=== PATIENT | female | born 1940 | race Asian ===

== ENCOUNTER 2016-12-04 16:13 | Inpatient (IN) | payer MEDICARE, OTHER ==
[~2016-12-04] VITALS: Ht 149.9 cm; Wt 48.0 kg
[~2016-12-04 16:13] MED LIST: ADV100 IH; AMLO-511 PO; ASPI81TA2 PO; DOCU240C25 PO; FOLI1TAB85 PO; GABA-531 PO; HYDR25 PO; ISOR40SR PO; METO-325 PO; SEVEC800 PO; SIMV-260 PO; SITA100 PO; TRAV5DRO2 OU
[2016-12-04] MEDS ORDERED: PHOSLOC PO (16:22)
[2016-12-04] MEDS ORDERED: MONT10TA21 PO (16:24)
[2016-12-04 18:23] LABS: BASOPHILS % (AUTO) 0.1 % (0.0-2.0); EOSINOPHILS % (AUTO) 5.1 % (1.0-6.0); HEMATOCRIT 28.1 % (36-46); HEMOGLOBIN 9.2 g/dL (12.0-16.0); LYMPHOCYTES # (AUTO) 0.5 K/uL (1.0-4.8); LYMPHOCYTES % (AUTO) 4.2 % (22.0-44.0); MEAN CORPUSCULAR HEMOGLOBIN 31.2 pg (26.0-34.0); MEAN CORPUSCULAR HGB CONC 32.6 G/dL (31.0-37.0); MEAN CORPUSCULAR VOLUME 96 fL (80-100); MONOCYTES # (AUTO) 0.6 K/uL (0.1-1.0); MONOCYTES % (AUTO) 4.7 % (2.0-9.0); PLATELET COUNT (AUTO) 262 K/uL (150-450); RED BLOOD CELL COUNT(AUTO) 2.94 MIL/uL (4.00-5.20); RED CELL DISTRIBUTION WIDTH 17.7 % (11.5-14.5); WHITE BLOOD COUNT (AUTO) 12.8 K/uL (4.5-11.0)
[2016-12-04 18:33] LABS: NEUTROPHILS % (AUTO) 85.9 % (40.0-70.0)
[2016-12-04 18:43] LABS: PROTHROMBIN TIME 10.9 SEC (9.4-11.6)
[2016-12-04 18:49] LABS: ANION GAP 9 mmol/L (8-16); CALCIUM, TOTAL 9.2 mg/dL (8.8-10.5); CARBON DIOXIDE 27 mmol/L (22-29); CHLORIDE 95 mmol/L (98-107); CREATININE 4.12 mg/dL (0.60-1.30); GLOMERULAR FILTR. RATE CALC 10 mL/min (>60); POTASSIUM 4.9 mmol/L (3.5-5.1); SODIUM SERUM 131 mmol/L (136-145); UREA NITROGEN, BLOOD 34 mg/dL (7-18)
[2016-12-04 18:55] LABS: ALANINE AMINOTRANSFERASE 15 U/L (12-78); ALBUMIN 2.4 g/dL (3.4-5.0); ASPARTATE AMINOTRANSFERASE 25 U/L (15-37); BILIRUBIN,TOTAL 0.4 mg/dL (0.1-1.0); CREATINE KINASE, TOTAL 49 U/L (26-192); TOTAL PROTEIN, SERUM 8.5 g/dL (6.4-8.2)
[2016-12-04 19:07] LABS: B-TYPE NATRIURETIC PEPTIDE 2020 pg/mL (0-100)
[2016-12-04 19:10] LABS: RBC MORPHOLOGY COMMENT ABNORMAL RBC MORPH
[2016-12-04 19:57] LABS: APPEARANCE,URINE CLEAR (CLEAR); GLUCOSE, URINE (UA) 100 mg/dL (NEGATIVE); KETONES,URINE NEGATIVE (NEGATIVE); LEUKOCYTE ESTERASE ,URINE NEGATIVE (NEGATIVE); OCCULT BLOOD,URINE MODERATE (NEGATIVE); PROTEIN,URINE SEE CONFIRM (NEGATIVE)
[2016-12-04 20:04] LABS: ADD UA MICROSCOPIC YES
[2016-12-04 20:52] LABS: SULFOSALICYLIC ACID,URINE 2+ (Negative)
[2016-12-04] MEDS ORDERED: OXYGEN THERAPY IH SCH (21:15)
[2016-12-04] MEDS ORDERED: FUROSEMIDE 40 MG/4 ML VIAL IVP ONE (21:15)
[2016-12-04] MEDS ORDERED: IPRATROPIUM BROMIDE 0.5 MG/2.5 ML NEB SOLUTION NEB ONE (21:15)
[2016-12-04] MEDS ORDERED: ALBUTEROL SULFATE 5 MG/ML 20 ML NEB SOLN [BULK] NEB ONE (21:15)
[2016-12-04] MEDS ORDERED: CefTRIAXone 1 GM/DEXTROSE 50 ML IV ONE (21:15)
[2016-12-04] MEDS ORDERED: MethylPREDNISolone SOD SUCC 125 MG/2 ML VIAL IVP ONE (21:15)
[2016-12-04] MEDS ORDERED: ACETAMINOPHEN 325 MG TABLET PO PRN (21:45)
[2016-12-04] MEDS: OXYGEN THERAPY IH SCH (21:45)
[2016-12-04] MEDS ORDERED: 0.9% SODIUM CHLORIDE 10 ML SYRINGE IVP PRN (21:45)
[2016-12-04] MEDS ORDERED: ONDANSETRON HCL 4 MG/2 ML VIAL IVP PRN (21:45)
[2016-12-04] MEDS ORDERED: 0.9% SODIUM CHLORIDE 5 ML NEB SOLUTION NEB ONE (21:50)
[2016-12-04 22:29] LABS: INFLUENZA TYPE B NEGATIVE FOR TYPE B (NEGATIVE)
[2016-12-04] MEDS ORDERED: IPRATROPIUM BROMIDE 0.5 MG/2.5 ML NEB SOLUTION NEB SCH (23:00)
[2016-12-04] MEDS ORDERED: ALBUTEROL SULFATE 2.5 MG/0.5 ML NEB SOLUTION NEB SCH (23:00)
[2016-12-05] VITALS (9 sets, daily range): BP systolic 110–148; BP diastolic 46–80
[2016-12-05] MEDS ORDERED: *CLINICAL-LEVOFLOXACIN IVPB DOSING CLINICAL ONE ×2 (00:45)
[2016-12-05] MEDS ORDERED: ONDANSETRON HCL 4 MG/2 ML VIAL IVP PRN (01:00)
[2016-12-05] MEDS ORDERED: MAGNESIUM HYDROXIDE SUSPENSION 30 ML UDCUP PO PRN (01:00)
[2016-12-05] MEDS ORDERED: DEXTROSE 50%-WATER 25 GM/50 ML SYRINGE IVP PRN (01:00)
[2016-12-05] MEDS ORDERED: DOCUSATE SODIUM 100 MG CAPSULE PO SCH (01:00)
[2016-12-05] MEDS ORDERED: OxyCODONE HCL/ACETAMINOPHEN 5-325 MG TABLET PO PRN ×2 (01:00)
[2016-12-05] MEDS ORDERED: 0.9% SODIUM CHLORIDE 10 ML SYRINGE IVP PRN (01:00)
[2016-12-05] MEDS ORDERED: LEVOFLOXACIN 500 MG/D5% WATER 100 ML IV ONE (01:00)
[2016-12-05] MEDS ORDERED: ACETAMINOPHEN 325 MG TABLET PO PRN (01:00)
[2016-12-05] MEDS ORDERED: POTASSIUM CHLORIDE 20 MEQ ER TABLET PO ONE (01:00)
[2016-12-05] MEDS ORDERED: SODIUM CHLORIDE 0.9% 100 ML ONE (01:20)
[2016-12-05] MEDS: DOCUSATE CALCIUM 240 MG CAPSULE PO SCH ×3 (01:33→20:05)
[2016-12-05] MEDS: TRAVOPROST-Z 0.004% 2.5 ML OPHTHALMIC SOLUTION OU SCH ×2 (01:33→20:07)
[2016-12-05] MEDS: AmLODIPine BESYLATE 5 MG TABLET PO SCH ×3 (01:33→20:06)
[2016-12-05] MEDS: HydrALAZINE HCL 25 MG TABLET PO SCH ×3 (01:33→20:06)
[2016-12-05] MEDS: CALCIUM ACETATE 667 MG CAPSULE PO SCH ×3 (08:00→18:09)
[2016-12-05] MEDS: SEVELAMER CARBONATE 800 MG TABLET PO SCH ×2 (08:00→18:09)
[2016-12-05] MEDS: OXYGEN THERAPY IH SCH (08:03)
[2016-12-05] MEDS: PANTOPRAZOLE SODIUM 40 MG/VIAL IVP SCH (08:50)
[2016-12-05] MEDS: GABAPENTIN 300 MG CAPSULE PO SCH ×3 (08:51→20:06)
[2016-12-05] MEDS: ASPIRIN 81 MG CHEWABLE TABLET PO SCH (08:51)
[2016-12-05] MEDS: ISOSORBIDE MONONITRATE 60 MG ER TABLET PO SCH (08:51)
[2016-12-05] MEDS: MONTELUKAST SODIUM 10 MG TABLET PO SCH (08:51)
[2016-12-05] MEDS: INSULIN ASPART 100 UNITS/ML SQ PRN ×3 (12:18→22:04)
[2016-12-05] MEDS ORDERED: SODIUM CHLORIDE 0.9% 1,000 ML IV ONE ×2 (13:03→13:05)
[2016-12-05 19:40] LABS: GLUCOSE COMMENT 1 Received Meds; GLUCOSE,POINT OF CARE 222 MG/DL (70-110)
[2016-12-05 19:41] LABS: GLUCOSE COMMENT 1 Received Meds; GLUCOSE,POINT OF CARE 177 MG/DL (70-110)
[2016-12-05 19:41] LABS: GLUCOSE,POINT OF CARE 85 MG/DL (70-110)
[2016-12-05] MEDS: SIMVASTATIN 20 MG TABLET PO SCH (20:06)
[2016-12-05] MEDS: METOPROLOL SUCCINATE 50 MG ER TABLET PO SCH (20:07)
[2016-12-06 05:13] VITALS: BP 134/69
[2016-12-06 06:31] LABS: BASOPHILS % (AUTO) 0.2 % (0.0-2.0); EOSINOPHILS % (AUTO) 5.3 % (1.0-6.0); HEMATOCRIT 31.9 % (36-46); HEMOGLOBIN 10.2 g/dL (12.0-16.0); LYMPHOCYTES # (AUTO) 0.7 K/uL (1.0-4.8); LYMPHOCYTES % (AUTO) 6.4 % (22.0-44.0); MEAN CORPUSCULAR HEMOGLOBIN 31.4 pg (26.0-34.0); MEAN CORPUSCULAR HGB CONC 31.9 G/dL (31.0-37.0); MEAN CORPUSCULAR VOLUME 98 fL (80-100); MONOCYTES # (AUTO) 0.9 K/uL (0.1-1.0); MONOCYTES % (AUTO) 8.9 % (2.0-9.0); NEUTROPHILS # (AUTO) 8.2 K/uL (1.8-7.7); NEUTROPHILS % (AUTO) 79.2 % (40.0-70.0); PLATELET COUNT (AUTO) 282 K/uL (150-450); RED BLOOD CELL COUNT(AUTO) 3.24 MIL/uL (4.00-5.20); RED CELL DISTRIBUTION WIDTH 18.4 % (11.5-14.5); WHITE BLOOD COUNT (AUTO) 10.3 K/uL (4.5-11.0)
[2016-12-06 06:49] LABS: CALCIUM, TOTAL 9.6 mg/dL (8.8-10.5); CREATININE 3.42 mg/dL (0.60-1.30)
[2016-12-06 07:57] VITALS: BP 108/58
[2016-12-06] MEDS: AmLODIPine BESYLATE 5 MG TABLET PO SCH ×2 (09:00→21:03)
[2016-12-06] MEDS: HydrALAZINE HCL 25 MG TABLET PO SCH ×2 (09:00→21:00)
[2016-12-06] MEDS: ISOSORBIDE MONONITRATE 60 MG ER TABLET PO SCH (09:00)
[2016-12-06] MEDS: TRAVOPROST-Z 0.004% 2.5 ML OPHTHALMIC SOLUTION OU SCH (09:03)
[2016-12-06] MEDS: MONTELUKAST SODIUM 10 MG TABLET PO SCH (09:06)
[2016-12-06] MEDS: ASPIRIN 81 MG CHEWABLE TABLET PO SCH (09:06)
[2016-12-06] MEDS: DOCUSATE CALCIUM 240 MG CAPSULE PO SCH ×4 (09:06→21:28)
[2016-12-06] MEDS: SEVELAMER CARBONATE 800 MG TABLET PO SCH ×2 (09:06→18:15)
[2016-12-06] MEDS: CALCIUM ACETATE 667 MG CAPSULE PO SCH ×3 (09:06→18:14)
[2016-12-06] MEDS: PANTOPRAZOLE SODIUM 40 MG/VIAL IVP SCH (09:07)
[2016-12-06] MEDS: GABAPENTIN 300 MG CAPSULE PO SCH ×3 (09:58→21:02)
[2016-12-06 11:29] VITALS: BP 101/47
[2016-12-06] MEDS: INSULIN ASPART 100 UNITS/ML SQ PRN ×3 (12:24→21:03)
[2016-12-06 15:53] VITALS: BP 123/54
[2016-12-06 19:33] VITALS: BP 117/50
[2016-12-06 20:42] LABS: GLUCOSE COMMENT 1 Received Meds; GLUCOSE,POINT OF CARE 150 MG/DL (70-110)
[2016-12-06 20:42] LABS: GLUCOSE COMMENT 1 Received Meds; GLUCOSE,POINT OF CARE 188 MG/DL (70-110)
[2016-12-06] MEDS: METOPROLOL SUCCINATE 50 MG ER TABLET PO SCH (21:02)
[2016-12-06] MEDS: SIMVASTATIN 20 MG TABLET PO SCH (21:03)
[2016-12-07] MEDS ORDERED: SODIUM CHLORIDE 0.9% 250 ML IV ONE (00:45)
[2016-12-07] MEDS ORDERED: LEVOFLOXACIN 500 MG/D5% WATER 100 ML IV SCH (01:00)
[2016-12-07] MEDS ORDERED: LEVOFLOXACIN 250 MG/D5% WATER 50 ML IV SCH (01:00)
[2016-12-07 05:19] VITALS: BP 128/55
[2016-12-07 06:21] LABS: GLUCOSE,POINT OF CARE 103 MG/DL (70-110)
[2016-12-07 07:17] VITALS: BP 126/45
[2016-12-07] MEDS: PANTOPRAZOLE SODIUM 40 MG/VIAL IVP SCH (08:13)
[2016-12-07] MEDS ORDERED: VITAMIN B COMP/VIT C/FOLIC ACID CAPSULE PO SCH (09:30)
[2016-12-07 10:17] LABS: CREATININE 5.49 mg/dL (0.60-1.30); PHOSPHORUS 4.9 mg/dL (2.5-4.9)
[2016-12-07 11:22] VITALS: BP 107/49
[2016-12-07] MEDS: CALCIUM ACETATE 667 MG CAPSULE PO SCH ×3 (11:30→18:38)
[2016-12-07] MEDS: SEVELAMER CARBONATE 800 MG TABLET PO SCH ×2 (11:30→18:38)
[2016-12-07] MEDS: ASPIRIN 81 MG CHEWABLE TABLET PO SCH (11:31)
[2016-12-07] MEDS: ISOSORBIDE MONONITRATE 60 MG ER TABLET PO SCH (11:31)
[2016-12-07] MEDS: HydrALAZINE HCL 25 MG TABLET PO SCH ×2 (11:31→20:18)
[2016-12-07] MEDS: AmLODIPine BESYLATE 5 MG TABLET PO SCH ×2 (11:32→20:18)
[2016-12-07] MEDS: MONTELUKAST SODIUM 10 MG TABLET PO SCH (11:32)
[2016-12-07] MEDS: GABAPENTIN 300 MG CAPSULE PO SCH ×3 (11:32→20:17)
[2016-12-07] MEDS: DOCUSATE CALCIUM 240 MG CAPSULE PO SCH ×2 (11:33→20:17)
[2016-12-07] MEDS: INSULIN ASPART 100 UNITS/ML SQ PRN ×2 (12:08→18:38)
[2016-12-07] MEDS ORDERED: MANNITOL 25%-12.5 GM/50 ML VIAL IVP PRN (15:15)
[2016-12-07] MEDS ORDERED: ALBUMIN HUMAN 25%-12.5GM/50ML IV BOTTLE IV PRN (15:15)
[2016-12-07 19:49] VITALS: BP 107/40
[2016-12-07] MEDS: SIMVASTATIN 20 MG TABLET PO SCH (20:17)
[2016-12-07] MEDS: TRAVOPROST-Z 0.004% 2.5 ML OPHTHALMIC SOLUTION OU SCH (20:17)
[2016-12-07] MEDS: METOPROLOL SUCCINATE 50 MG ER TABLET PO SCH (20:18)
[2016-12-08 00:07] LABS: GLUCOSE COMMENT 1 Received Meds; GLUCOSE,POINT OF CARE 289 MG/DL (70-110)
[2016-12-08 00:07] LABS: GLUCOSE COMMENT 1 Received Meds; GLUCOSE,POINT OF CARE 170 MG/DL (70-110)
[2016-12-08 14:46] LABS: GLUCOSE COMMENT 1 Received Meds; GLUCOSE,POINT OF CARE 192 MG/DL (70-110)
[2016-12-08 14:46] LABS: GLUCOSE COMMENT 1 Received Meds; GLUCOSE,POINT OF CARE 179 MG/DL (70-110)
[2016-12-08 14:46] LABS: GLUCOSE,POINT OF CARE 113 MG/DL (70-110)
[2016-12-08 14:46] LABS: GLUCOSE,POINT OF CARE 196 MG/DL (70-110)
== END 2016-12-07 20:50 | DRG 291 ==
LOC: EMS 16:18 → 5S 22:00
PROVIDERS: ADMIT Internal Medicine; ATTEND Internal Medicine
PROC: 5A09357 Assistance with Respiratory Ventilation, Less than 24 Consecutive Hours, Continuous Positive Airway Pressure (ICD-10-PCS; 2016-12-04)
PROC: 5A1D00Z (ICD-10-PCS; principal; 2016-12-07)
DX: I13.2 Hypertensive heart and chronic kidney disease with heart failure and with stage 5 chronic kidney disease, or end stage renal disease (principal); G93.41 Metabolic encephalopathy; E43 Unspecified severe protein-calorie malnutrition; N18.6 End stage renal disease; J96.01 Acute respiratory failure with hypoxia; I50.43 Acute on chronic combined systolic (congestive) and diastolic (congestive) heart failure; N39.0 Urinary tract infection, site not specified; M19.90 Unspecified osteoarthritis, unspecified site; E78.00 Pure hypercholesterolemia, unspecified; E11.22 Type 2 diabetes mellitus with diabetic chronic kidney disease; E11.21 Type 2 diabetes mellitus with diabetic nephropathy; D63.1 Anemia in chronic kidney disease; J44.9 Chronic obstructive pulmonary disease, unspecified; I25.10 Atherosclerotic heart disease of native coronary artery without angina pectoris; H40.9 Unspecified glaucoma; M10.9 Gout, unspecified; Z99.2 Dependence on renal dialysis; Z88.1 Allergy status to other antibiotic agents; Z88.8 Allergy status to other drugs, medicaments and biological substances; Z79.899 Other long term (current) drug therapy; Z79.82 Long term (current) use of aspirin; Z79.4 Long term (current) use of insulin; Z68.21 Body mass index [BMI] 21.0-21.9, adult; Z90.49 Acquired absence of other specified parts of digestive tract; Z95.1 Presence of aortocoronary bypass graft; Z95.0 Presence of cardiac pacemaker; Z87.440 Personal history of urinary (tract) infections
CPT/HCPCS: 70450; 74176; 82962; 83735; 84100; 87040; 87081; 87086; 87340; 87804; 90935; 93005; 94640; 96365; 96375; 99285; C9113; J0696; J1940; J1956; J2930; J7030; J7050

== ENCOUNTER 2017-01-20 09:28 | Inpatient (IN) | payer MEDICARE, OTHER ==
[~2017-01-20] VITALS: Ht 144.8 cm; Wt 67.5 kg
[~2017-01-20 09:28] MED LIST changes: +MONT10TA21 PO; +PHOSLOC PO
[2017-01-20] MEDS ORDERED: ALBUTEROL SULFATE 5 MG/ML 20 ML NEB SOLN [BULK] NEB ONE (10:30)
[2017-01-20] MEDS ORDERED: IPRATROPIUM BROMIDE 0.5 MG/2.5 ML NEB SOLUTION NEB ONE (10:30)
[2017-01-20 10:31] LABS: GLUCOSE,POINT OF CARE 132 MG/DL (70-110)
[2017-01-20] MEDS ORDERED: 0.9% SODIUM CHLORIDE 5 ML NEB SOLUTION NEB ONE (10:41)
[2017-01-20] MEDS ORDERED: MethylPREDNISolone SOD SUCC 125 MG/2 ML VIAL IVP ONE (10:45)
[2017-01-20 11:47] LABS: BASOPHILS % (AUTO) 0.1 % (0.0-2.0); EOSINOPHILS % (AUTO) 0.2 % (1.0-6.0); HEMATOCRIT 36.1 % (36-46); HEMOGLOBIN 11.3 g/dL (12.0-16.0); LYMPHOCYTES # (AUTO) 1.4 K/uL (1.0-4.8); LYMPHOCYTES % (AUTO) 11.8 % (22.0-44.0); MEAN CORPUSCULAR HEMOGLOBIN 31.1 pg (26.0-34.0); MEAN CORPUSCULAR HGB CONC 31.3 G/dL (31.0-37.0); MEAN CORPUSCULAR VOLUME 99 fL (80-100); MONOCYTES # (AUTO) 0.6 K/uL (0.1-1.0); MONOCYTES % (AUTO) 4.9 % (2.0-9.0); NEUTROPHILS # (AUTO) 9.9 K/uL (1.8-7.7); PLATELET COUNT (AUTO) 200 K/uL (150-450); RED BLOOD CELL COUNT(AUTO) 3.63 MIL/uL (4.00-5.20); RED CELL DISTRIBUTION WIDTH 19.7 % (11.5-14.5)
[2017-01-20 11:58] LABS: RBC MORPHOLOGY COMMENT ABNORMAL RBC MORPH
[2017-01-20] MEDS ORDERED: DEXTROSE 50%-WATER 25 GM/50 ML SYRINGE IVP ONE (12:15)
[2017-01-20] MEDS ORDERED: INSULIN REGULAR, HUMAN 100 UNITS/ML IVP ONE (12:15)
[2017-01-20] MEDS ORDERED: SODIUM BICARBONATE [ADULT] 8.4% 50 MEQ/50 ML SYRINGE IVP ONE (12:15)
[2017-01-20] MEDS ORDERED: SODIUM POLYSTYRENE SULFONATE 15 GM/60 ML SUSPENSION BOTTLE PO ONE (12:15)
[2017-01-20 13:07] LABS: GLUCOSE,POINT OF CARE 172 MG/DL (70-110)
[2017-01-20 13:51] LABS: ANION GAP 19 mmol/L (8-16); CALCIUM, TOTAL 8.9 mg/dL (8.8-10.5); CARBON DIOXIDE 20 mmol/L (22-29); CHLORIDE 103 mmol/L (98-107); CREATININE 7.51 mg/dL (0.60-1.30); GLOMERULAR FILTR. RATE CALC 5 mL/min (>60); INR 1.1 (0.9-1.1); PROTHROMBIN TIME 11.7 SEC (9.4-11.6); SODIUM SERUM 142 mmol/L (136-145); UREA NITROGEN, BLOOD 91 mg/dL (7-18)
[2017-01-20 14:29] LABS: ALANINE AMINOTRANSFERASE 10 U/L (12-78); ALBUMIN 2.7 g/dL (3.4-5.0); ASPARTATE AMINOTRANSFERASE 26 U/L (15-37); BILIRUBIN,TOTAL 0.8 mg/dL (0.1-1.0); CREATINE KINASE, TOTAL 23 U/L (26-192); TOTAL PROTEIN, SERUM 6.8 g/dL (6.4-8.2)
[2017-01-20 14:46] LABS: ORIG DRAW (USER) PTCARESTAF
[2017-01-20] MEDS ORDERED: CefTRIAXone 1 GM/DEXTROSE 50 ML IV ONE (15:07)
[2017-01-20 15:36] LABS: REFLEX LACTIC ACID? YES YES
[2017-01-20] MEDS ORDERED: 0.9% SODIUM CHLORIDE 10 ML SYRINGE IVP PRN (18:00)
[2017-01-20] MEDS ORDERED: DEXTROSE 50%-WATER 25 GM/50 ML SYG IVP PRN (18:00)
[2017-01-20] MEDS ORDERED: ACETAMINOPHEN 325 MG TABLET PO PRN ×2 (18:00)
[2017-01-20 18:18] LABS: APPEARANCE,URINE TURBID (CLEAR); GLUCOSE, URINE (UA) 100 mg/dL (NEGATIVE); KETONES,URINE NEGATIVE (NEGATIVE); LEUKOCYTE ESTERASE ,URINE SMALL (NEGATIVE); OCCULT BLOOD,URINE LARGE (NEGATIVE); PROTEIN,URINE SEE CONFIRM (NEGATIVE)
[2017-01-20 18:19] LABS: ADD UA MICROSCOPIC YES
[2017-01-20 18:22] LABS: SULFOSALICYLIC ACID,URINE 3+ (Negative)
[2017-01-20 19:22] VITALS: BP 141/60
[2017-01-20] MEDS: PANTOPRAZOLE SODIUM 40 MG DR TABLET PO SCH (20:38)
[2017-01-20] MEDS: DOCUSATE SODIUM 100 MG CAPSULE PO SCH (20:39)
[2017-01-20] MEDS: ASPIRIN 81 MG CHEWABLE TABLET PO SCH (20:39)
[2017-01-20] MEDS: INSULIN ASPART 100 UNITS/ML SQ PRN (21:06)
[2017-01-21] VITALS (7 sets, daily range): BP systolic 114–140; BP diastolic 54–75
[2017-01-21 05:43] LABS: GLUCOSE COMMENT 1 Received Meds; GLUCOSE,POINT OF CARE 308 MG/DL (70-110)
[2017-01-21] MEDS: INSULIN ASPART 100 UNITS/ML SQ PRN ×2 (06:19→18:16)
[2017-01-21] MEDS: DOCUSATE SODIUM 100 MG CAPSULE PO SCH ×2 (08:50→20:30)
[2017-01-21] MEDS: PANTOPRAZOLE SODIUM 40 MG DR TABLET PO SCH (08:50)
[2017-01-21] MEDS: ASPIRIN 81 MG CHEWABLE TABLET PO SCH (08:50)
[2017-01-21] MEDS ORDERED: INSULIN ASPART 100 UNITS/ML SQ PRN (09:15)
[2017-01-21] MEDS ORDERED: ACETAMINOPHEN 325 MG TABLET PO PRN (09:15)
[2017-01-21] MEDS ORDERED: BISACODYL 10 MG RECTAL RECTAL SUPPOSITORY PR PRN (09:15)
[2017-01-21] MEDS ORDERED: ALBUTEROL SULFATE 2.5 MG/0.5 ML NEB SOLUTION NEB PRN (09:15)
[2017-01-21] MEDS ORDERED: DEXTROSE 50%-WATER 25 GM/50 ML SYRINGE IVP PRN (09:15)
[2017-01-21 09:23] LABS: HEMATOCRIT 31.5 % (36-46); HEMOGLOBIN 10.1 g/dL (12.0-16.0); MEAN CORPUSCULAR HEMOGLOBIN 31.9 pg (26.0-34.0); MEAN CORPUSCULAR HGB CONC 32.3 G/dL (31.0-37.0); MEAN CORPUSCULAR VOLUME 99 fL (80-100); PLATELET COUNT (AUTO) 184 K/uL (150-450); RED BLOOD CELL COUNT(AUTO) 3.18 MIL/uL (4.00-5.20); RED CELL DISTRIBUTION WIDTH 19.1 % (11.5-14.5)
[2017-01-21 09:34] LABS: CALCIUM, TOTAL 9.4 mg/dL (8.8-10.5); CREATININE 5.75 mg/dL (0.60-1.30); POTASSIUM 3.8 mmol/L (3.5-5.1)
[2017-01-21 09:40] LABS: ALBUMIN 2.6 g/dL (3.4-5.0); BILIRUBIN,TOTAL 0.5 mg/dL (0.1-1.0); MAGNESIUM 2.1 mg/dL (1.80-2.40); PHOSPHORUS 7.1 mg/dL (2.5-4.9); TOTAL PROTEIN, SERUM 8.1 g/dL (6.4-8.2)
[2017-01-21 09:53] LABS: BAND NEUTROPHILS % (MANUAL) 39 % (1-5); LYMPHOCYTES % (MANUAL) 1 % (22-44); TOTAL CELLS COUNTED 100
[2017-01-21 09:54] LABS: WBC MORPHOLOGY TOXIC GRANULATION
[2017-01-21] MEDS: VITAMIN B COMP/VIT C/FOLIC ACID CAPSULE PO SCH (10:36)
[2017-01-21] MEDS: HEPARIN SODIUM,PORCINE 5,000 UNITS/ML VIAL SQ SCH ×2 (10:36→20:31)
[2017-01-21] MEDS ORDERED: DOCUSATE SODIUM 100 MG CAPSULE PO SCH (21:00)
[2017-01-22 04:04] VITALS: BP 156/69
[2017-01-22 06:31] LABS: EOSINOPHILS % (AUTO) 0 % (1.0-6.0); HEMATOCRIT 32.4 % (36-46); HEMOGLOBIN 10.1 g/dL (12.0-16.0); LYMPHOCYTES # (AUTO) 0.3 K/uL (1.0-4.8); LYMPHOCYTES % (AUTO) 2.2 % (22.0-44.0); MEAN CORPUSCULAR HGB CONC 31.2 G/dL (31.0-37.0); MEAN CORPUSCULAR VOLUME 99 fL (80-100); MONOCYTES # (AUTO) 0.6 K/uL (0.1-1.0); MONOCYTES % (AUTO) 5.5 % (2.0-9.0); NEUTROPHILS # (AUTO) 10.4 K/uL (1.8-7.7); PLATELET COUNT (AUTO) 218 K/uL (150-450); RED BLOOD CELL COUNT(AUTO) 3.27 MIL/uL (4.00-5.20); RED CELL DISTRIBUTION WIDTH 19.5 % (11.5-14.5); WHITE BLOOD COUNT (AUTO) 11.3 K/uL (4.5-11.0)
[2017-01-22 06:43] LABS: NEUTROPHILS % (AUTO) 92.3 % (40.0-70.0)
[2017-01-22 06:48] LABS: CALCIUM, TOTAL 8.4 mg/dL (8.8-10.5); CREATININE 7.14 mg/dL (0.60-1.30); MAGNESIUM 2.4 mg/dL (1.80-2.40); PHOSPHORUS 7.2 mg/dL (2.5-4.9); POTASSIUM 4.3 mmol/L (3.5-5.1)
[2017-01-22 07:39] VITALS: BP 150/65
[2017-01-22] MEDS ORDERED: SODIUM CHLORIDE 0.9% 2,000 ML IV ONE (08:29)
[2017-01-22] MEDS: PANTOPRAZOLE SODIUM 40 MG DR TABLET PO SCH (09:00)
[2017-01-22] MEDS: ASPIRIN 81 MG CHEWABLE TABLET PO SCH (09:00)
[2017-01-22] MEDS: VITAMIN B COMP/VIT C/FOLIC ACID CAPSULE PO SCH (09:00)
[2017-01-22] MEDS: HEPARIN SODIUM,PORCINE 5,000 UNITS/ML VIAL SQ SCH ×2 (09:00→21:00)
[2017-01-22] MEDS: DOCUSATE SODIUM 100 MG CAPSULE PO SCH ×2 (09:00→21:00)
[2017-01-22] MEDS ORDERED: MANNITOL 25%-12.5 GM/50 ML VIAL IVP PRN (10:30)
[2017-01-22 10:38] LABS: RBC MORPHOLOGY COMMENT ABNORMAL RBC MORPH
[2017-01-22 11:50] VITALS: BP 111/54
[2017-01-22 11:57] LABS: GLUCOSE COMMENT 1 Received Meds; GLUCOSE,POINT OF CARE 282 MG/DL (70-110)
[2017-01-22 15:00] VITALS: BP 134/62
[2017-01-22] MEDS ORDERED: 0.9% SODIUM CHLORIDE 5 ML NEB SOLUTION NEB ONE (16:17)
[2017-01-22 19:38] VITALS: BP 139/68
[2017-01-22] MEDS: INSULIN ASPART 100 UNITS/ML SQ PRN (21:31)
[2017-01-23 00:22] VITALS: BP 139/67
[2017-01-23 05:11] VITALS: BP 127/73
[2017-01-23 06:56] LABS: GLUCOSE,POINT OF CARE 114 MG/DL (70-110)
[2017-01-23 07:24] VITALS: BP 141/62
[2017-01-23 07:30] LABS: CALCIUM, TOTAL 9.2 mg/dL (8.8-10.5); CREATININE 5.49 mg/dL (0.60-1.30); MAGNESIUM 2.2 mg/dL (1.80-2.40); PHOSPHORUS 5.5 mg/dL (2.5-4.9)
[2017-01-23 07:46] LABS: POTASSIUM 6.1 mmol/L (3.5-5.1)
[2017-01-23] MEDS: VITAMIN B COMP/VIT C/FOLIC ACID CAPSULE PO SCH (09:25)
[2017-01-23] MEDS: PANTOPRAZOLE SODIUM 40 MG DR TABLET PO SCH (09:25)
[2017-01-23] MEDS: ASPIRIN 81 MG CHEWABLE TABLET PO SCH (09:26)
[2017-01-23] MEDS: HEPARIN SODIUM,PORCINE 5,000 UNITS/ML VIAL SQ SCH (09:27)
[2017-01-23] MEDS: DOCUSATE SODIUM 100 MG CAPSULE PO SCH (09:27)
[2017-01-23 11:25] VITALS: BP 137/63
[2017-01-23 12:07] LABS: GLUCOSE COMMENT 1 Received Meds; GLUCOSE,POINT OF CARE 257 MG/DL (70-110)
[2017-01-23] MEDS: INSULIN ASPART 100 UNITS/ML SQ PRN (12:11)
[2017-02-01 06:54] LABS: GLUCOSE COMMENT 1 Received Meds; GLUCOSE,POINT OF CARE 324 MG/DL (70-110)
[2017-02-01 06:54] LABS: GLUCOSE COMMENT 1 Received Meds; GLUCOSE,POINT OF CARE 300 MG/DL (70-110)
[2017-02-01 06:54] LABS: GLUCOSE COMMENT 1 Received Meds; GLUCOSE,POINT OF CARE 272 MG/DL (70-110)
[2017-02-01 06:54] LABS: GLUCOSE COMMENT 1 Received Meds; GLUCOSE,POINT OF CARE 166 MG/DL (70-110)
== END 2017-01-23 15:00 | disposition home or self-care (01) | DRG 640 ==
LOC: EMS 09:31 → 5S 17:30
PROVIDERS: ADMIT Internal Medicine; ATTEND Internal Medicine
PROC: 5A1D60Z (ICD-10-PCS; principal; 2017-01-20)
DX: E87.5 Hyperkalemia (principal); N18.6 End stage renal disease; E43 Unspecified severe protein-calorie malnutrition; I50.32 Chronic diastolic (congestive) heart failure; I13.2 Hypertensive heart and chronic kidney disease with heart failure and with stage 5 chronic kidney disease, or end stage renal disease; E87.79 Other fluid overload; E11.22 Type 2 diabetes mellitus with diabetic chronic kidney disease; E11.65 Type 2 diabetes mellitus with hyperglycemia; R82.71 Bacteriuria; M19.90 Unspecified osteoarthritis, unspecified site; E78.00 Pure hypercholesterolemia, unspecified; I45.10 Unspecified right bundle-branch block; E87.2 Acidosis; I25.10 Atherosclerotic heart disease of native coronary artery without angina pectoris; J84.10 Pulmonary fibrosis, unspecified; I49.5 Sick sinus syndrome; I07.1 Rheumatic tricuspid insufficiency; R53.81 Other malaise; I70.0 Atherosclerosis of aorta; E78.5 Hyperlipidemia, unspecified; D64.9 Anemia, unspecified; Z99.2 Dependence on renal dialysis; Z88.5 Allergy status to narcotic agent; Z88.8 Allergy status to other drugs, medicaments and biological substances; Z88.0 Allergy status to penicillin; Z79.899 Other long term (current) drug therapy; Z79.51 Long term (current) use of inhaled steroids; Z79.4 Long term (current) use of insulin; Z79.82 Long term (current) use of aspirin; Z90.49 Acquired absence of other specified parts of digestive tract; Z95.1 Presence of aortocoronary bypass graft; Z68.32 Body mass index [BMI] 32.0-32.9, adult; Z95.810 Presence of automatic (implantable) cardiac defibrillator; Z82.49 Family history of ischemic heart disease and other diseases of the circulatory system
CPT/HCPCS: 70450; 82962; 83605; 83735; 84100; 84132; 84520; 87040; 87081; 87086; 87340; 90935; 93005; 93306; 96374; 96375; 97162; 99291; J0696; J1644; J1815; J2930; J3490; J7030

== ENCOUNTER 2017-01-25 17:20 | Inpatient (IN) | payer MEDICARE, OTHER ==
[~2017-01-25] VITALS: Ht 139.7 cm; Wt 45.9 kg
[~2017-01-25 17:20] MED LIST changes: -AMLO-511 PO; -GABA-531 PO; -ISOR40SR PO; -MONT10TA21 PO; -SIMV-260 PO; +SIMV20 PO
[2017-01-25] MEDS ORDERED: DOCU250C91 PO (17:44)
[2017-01-25] MEDS ORDERED: FAMO20 PO (17:44)
[2017-01-25] MEDS ORDERED: ISOS60TA4 PO (17:44)
[2017-01-25] MEDS ORDERED: TRAM50TA4 PO (17:44)
[2017-01-25] MEDS ORDERED: PHOSLOC PO (17:44)
[2017-01-25] MEDS ORDERED: DIPH25 PO (17:44)
[2017-01-25] MEDS ORDERED: VITAD1000 PO (17:44)
[2017-01-25] MEDS ORDERED: MONT10TA21 PO (17:44)
[2017-01-25] MEDS ORDERED: FURO80 PO (17:44)
[2017-01-25] MEDS ORDERED: AMLO-511 PO (17:44)
[2017-01-25] MEDS ORDERED: NITR.4 SL (17:44)
[2017-01-25] MEDS ORDERED: SODIUM CHLORIDE 0.9% 500 ML IV ONE (18:15)
[2017-01-25 19:36] LABS: TROPONIN I 0.05 ng/mL (0.00-0.05)
[2017-01-25 19:43] LABS: ANION GAP 13 mmol/L (8-16); CALCIUM, TOTAL 7.5 mg/dL (8.8-10.5); CARBON DIOXIDE 23 mmol/L (22-29); CHLORIDE 103 mmol/L (98-107); CREATININE 5.63 mg/dL (0.60-1.30); GLOMERULAR FILTR. RATE CALC 7 mL/min (>60); POTASSIUM 4.6 mmol/L (3.5-5.1); SODIUM SERUM 139 mmol/L (136-145); UREA NITROGEN, BLOOD 83 mg/dL (7-18)
[2017-01-25 19:45] LABS: BASOPHILS % (AUTO) 0.2 % (0.0-2.0); EOSINOPHILS % (AUTO) 0.5 % (1.0-6.0); HEMATOCRIT 28.2 % (36-46); LYMPHOCYTES # (AUTO) 0.4 K/uL (1.0-4.8); LYMPHOCYTES % (AUTO) 3.1 % (22.0-44.0); MEAN CORPUSCULAR HEMOGLOBIN 30.6 pg (26.0-34.0); MEAN CORPUSCULAR HGB CONC 31.9 G/dL (31.0-37.0); MEAN CORPUSCULAR VOLUME 96 fL (80-100); MONOCYTES # (AUTO) 0.6 K/uL (0.1-1.0); MONOCYTES % (AUTO) 3.9 % (2.0-9.0); NEUTROPHILS # (AUTO) 13.2 K/uL (1.8-7.7); PLATELET COUNT (AUTO) 171 K/uL (150-450); RED BLOOD CELL COUNT(AUTO) 2.94 MIL/uL (4.00-5.20); RED CELL DISTRIBUTION WIDTH 19.3 % (11.5-14.5); WHITE BLOOD COUNT (AUTO) 14.3 K/uL (4.5-11.0)
[2017-01-25 19:46] LABS: NEUTROPHILS % (AUTO) 92.3 % (40.0-70.0)
[2017-01-25 19:49] LABS: ALANINE AMINOTRANSFERASE 13 U/L (12-78); ALBUMIN 2.1 g/dL (3.4-5.0); ASPARTATE AMINOTRANSFERASE 18 U/L (15-37); BILIRUBIN,TOTAL 0.4 mg/dL (0.1-1.0); CREATINE KINASE, TOTAL 21 U/L (26-192); TOTAL PROTEIN, SERUM 6.9 g/dL (6.4-8.2)
[2017-01-25 19:52] LABS: LACTIC ACID 0.7 mmol/L (0.4-2.0)
[2017-01-25] MEDS ORDERED: OXYGEN THERAPY IH SCH (20:00)
[2017-01-25 20:03] LABS: RBC MORPHOLOGY COMMENT ABNORMAL RBC MORPH
[2017-01-25 20:08] LABS: B-TYPE NATRIURETIC PEPTIDE 443 pg/mL (0-100)
[2017-01-25 20:47] LABS: APPEARANCE,URINE CLOUDY (CLEAR); GLUCOSE, URINE (UA) 250 mg/dL (NEGATIVE); KETONES,URINE NEGATIVE (NEGATIVE); LEUKOCYTE ESTERASE ,URINE SMALL (NEGATIVE); OCCULT BLOOD,URINE TRACE (NEGATIVE); PH,URINE 5.5 (5.0-8.0); PROTEIN,URINE SEE CONFIRM (NEGATIVE)
[2017-01-25 21:18] LABS: SULFOSALICYLIC ACID,URINE 3+ (Negative)
[2017-01-25 21:22] LABS: WBC,URINE 51-100 /HPF (0-5)
[2017-01-25] MEDS ORDERED: ACETAMINOPHEN 325 MG TABLET PO PRN ×2 (21:30→22:00)
[2017-01-25] MEDS ORDERED: 0.9% SODIUM CHLORIDE 10 ML SYRINGE IVP PRN (21:30)
[2017-01-25] MEDS ORDERED: ONDANSETRON HCL 4 MG/2 ML VIAL IVP PRN ×2 (21:30→22:00)
[2017-01-25] MEDS ORDERED: CefTRIAXone 1 GM/DEXTROSE 50 ML IV ONE (21:45)
[2017-01-25] MEDS ORDERED: MAGNESIUM HYDROXIDE SUSPENSION 30 ML UDCUP PO PRN (22:00)
[2017-01-25] MEDS ORDERED: ALBUTEROL SULFATE 2.5 MG/0.5 ML NEB SOLUTION NEB PRN (22:00)
[2017-01-25] MEDS ORDERED: OxyCODONE HCL/ACETAMINOPHEN 5-325 MG TABLET PO PRN (22:00)
[2017-01-25] MEDS ORDERED: ZOLPIDEM TARTRATE 5 MG TABLET PO PRN (22:00)
[2017-01-25] MEDS ORDERED: BISACODYL 10 MG RECTAL RECTAL SUPPOSITORY PR PRN (22:00)
[2017-01-25] MEDS ORDERED: IPRATROPIUM BROMIDE 0.5 MG/2.5 ML NEB SOLUTION NEB PRN (22:00)
[2017-01-26] VITALS (7 sets, daily range): BP systolic 110–157; BP diastolic 51–66
[2017-01-26] MEDS ORDERED: DEXTROSE 50%-WATER 25 GM/50 ML SYRINGE IVP PRN (06:00)
[2017-01-26 06:27] LABS: BASOPHILS % (AUTO) 0.1 % (0.0-2.0); EOSINOPHILS % (AUTO) 4.1 % (1.0-6.0); HEMATOCRIT 28.6 % (36-46); LYMPHOCYTES # (AUTO) 0.7 K/uL (1.0-4.8); LYMPHOCYTES % (AUTO) 4.8 % (22.0-44.0); MEAN CORPUSCULAR HEMOGLOBIN 30.7 pg (26.0-34.0); MEAN CORPUSCULAR HGB CONC 31.4 G/dL (31.0-37.0); MEAN CORPUSCULAR VOLUME 98 fL (80-100); MONOCYTES # (AUTO) 0.7 K/uL (0.1-1.0); MONOCYTES % (AUTO) 4.8 % (2.0-9.0); NEUTROPHILS # (AUTO) 11.7 K/uL (1.8-7.7); PLATELET COUNT (AUTO) 200 K/uL (150-450); RED BLOOD CELL COUNT(AUTO) 2.92 MIL/uL (4.00-5.20); RED CELL DISTRIBUTION WIDTH 19.3 % (11.5-14.5); WHITE BLOOD COUNT (AUTO) 13.6 K/uL (4.5-11.0)
[2017-01-26 06:44] LABS: NEUTROPHILS % (AUTO) 86.2 % (40.0-70.0)
[2017-01-26 06:45] LABS: RBC MORPHOLOGY COMMENT ABNORMAL RBC MORPH
[2017-01-26 07:02] LABS: HEMOGLOBIN A1C 5.8 % (4.5-6.2)
[2017-01-26 07:18] LABS: ALBUMIN 2.3 g/dL (3.4-5.0); BILIRUBIN,TOTAL 0.3 mg/dL (0.1-1.0); CALCIUM, TOTAL 7.9 mg/dL (8.8-10.5); CREATININE 6.51 mg/dL (0.60-1.30); PHOSPHORUS 6.1 mg/dL (2.5-4.9); POTASSIUM 5.3 mmol/L (3.5-5.1); TOTAL PROTEIN, SERUM 7.1 g/dL (6.4-8.2)
[2017-01-26 09:18] LABS: GLUCOSE,POINT OF CARE 125 MG/DL (70-110)
[2017-01-26] MEDS: LEVOFLOXACIN 250 MG/D5% WATER 50 ML IV SCH (11:08)
[2017-01-26] MEDS ORDERED: SODIUM CHLORIDE 0.9% 250 ML IV ONE (11:11)
[2017-01-26] MEDS: CHOLECALCIFEROL (VIT D3) 1,000 UNITS TABLET PO SCH (12:05)
[2017-01-26] MEDS: SitaGLIPtin PHOSPHATE 50 MG TABLET PO SCH (12:06)
[2017-01-26] MEDS: SEVELAMER CARBONATE 800 MG TABLET PO SCH ×2 (12:06→18:00)
[2017-01-26] MEDS: VITAMIN B COMP/VIT C/FOLIC ACID CAPSULE PO SCH (12:06)
[2017-01-26] MEDS: INSULIN ASPART 100 UNITS/ML SQ PRN ×2 (12:16→21:16)
[2017-01-26] MEDS ORDERED: SODIUM CHLORIDE 0.9% 2,000 ML IV ONE (13:04)
[2017-01-26] MEDS: SIMVASTATIN 20 MG TABLET PO SCH (21:00)
[2017-01-26] MEDS: TRAVOPROST-Z 0.004% 2.5 ML OPHTHALMIC SOLUTION OU SCH (21:09)
[2017-01-27 04:47] VITALS: BP 139/53
[2017-01-27 05:47] LABS: GLUCOSE COMMENT 1 Received Meds; GLUCOSE,POINT OF CARE 181 MG/DL (70-110)
[2017-01-27 06:59] VITALS: BP 128/51
[2017-01-27 07:38] LABS: EOSINOPHILS % (AUTO) 2.4 % (1.0-6.0); HEMATOCRIT 27.9 % (36-46); HEMOGLOBIN 8.9 g/dL (12.0-16.0); LYMPHOCYTES # (AUTO) 0.7 K/uL (1.0-4.8); LYMPHOCYTES % (AUTO) 4.8 % (22.0-44.0); MEAN CORPUSCULAR HEMOGLOBIN 31.2 pg (26.0-34.0); MEAN CORPUSCULAR HGB CONC 31.9 G/dL (31.0-37.0); MEAN CORPUSCULAR VOLUME 98 fL (80-100); MONOCYTES # (AUTO) 0.7 K/uL (0.1-1.0); MONOCYTES % (AUTO) 4.9 % (2.0-9.0); NEUTROPHILS # (AUTO) 11.9 K/uL (1.8-7.7); PLATELET COUNT (AUTO) 220 K/uL (150-450); RED BLOOD CELL COUNT(AUTO) 2.85 MIL/uL (4.00-5.20); RED CELL DISTRIBUTION WIDTH 18.9 % (11.5-14.5); WHITE BLOOD COUNT (AUTO) 13.5 K/uL (4.5-11.0)
[2017-01-27 07:39] LABS: NEUTROPHILS % (AUTO) 87.9 % (40.0-70.0)
[2017-01-27] MEDS: SEVELAMER CARBONATE 800 MG TABLET PO SCH ×3 (08:00→18:07)
[2017-01-27 08:06] LABS: CALCIUM, TOTAL 9.1 mg/dL (8.8-10.5); CREATININE 3.77 mg/dL (0.60-1.30); MAGNESIUM 1.7 mg/dL (1.80-2.40); PHOSPHORUS 4.5 mg/dL (2.5-4.9); POTASSIUM 4.4 mmol/L (3.5-5.1)
[2017-01-27] MEDS: VITAMIN B COMP/VIT C/FOLIC ACID CAPSULE PO SCH ×2 (09:00→09:16)
[2017-01-27] MEDS: CHOLECALCIFEROL (VIT D3) 1,000 UNITS TABLET PO SCH ×2 (09:00→09:18)
[2017-01-27] MEDS: SitaGLIPtin PHOSPHATE 50 MG TABLET PO SCH ×2 (09:00→09:16)
[2017-01-27] MEDS: LEVOFLOXACIN 250 MG/D5% WATER 50 ML IV SCH (09:18)
[2017-01-27 10:03] LABS: RBC MORPHOLOGY COMMENT ABNORMAL RBC MORPH
[2017-01-27 11:20] VITALS: BP 141/66
[2017-01-27 14:23] LABS: GLUCOSE,POINT OF CARE 99 MG/DL (70-110)
[2017-01-27 14:23] LABS: GLUCOSE,POINT OF CARE 100 MG/DL (70-110)
[2017-01-27 17:09] VITALS: BP 121/51
[2017-01-27] MEDS: INSULIN ASPART 100 UNITS/ML SQ PRN (18:15)
[2017-01-27 19:38] VITALS: BP 125/57
[2017-01-27] MEDS: TRAVOPROST-Z 0.004% 2.5 ML OPHTHALMIC SOLUTION OU SCH (20:12)
[2017-01-27] MEDS: SIMVASTATIN 20 MG TABLET PO SCH (20:12)
[2017-01-28 00:13] VITALS: BP 151/57
[2017-01-28 03:58] VITALS: BP 156/59
[2017-01-28 04:22] VITALS: BP 141/61
[2017-01-28] MEDS ORDERED: VITAD1000 PO (05:07)
[2017-01-28 07:27] LABS: GLUCOSE,POINT OF CARE 140 MG/DL (70-110)
[2017-01-28] MEDS: SEVELAMER CARBONATE 800 MG TABLET PO SCH (08:00)
[2017-01-28 08:09] VITALS: BP 107/30
[2017-01-28] MEDS: SitaGLIPtin PHOSPHATE 50 MG TABLET PO SCH (09:31)
[2017-01-28] MEDS: VITAMIN B COMP/VIT C/FOLIC ACID CAPSULE PO SCH (09:31)
[2017-01-28] MEDS: CHOLECALCIFEROL (VIT D3) 1,000 UNITS TABLET PO SCH (09:31)
[2017-01-28] MEDS: LEVOFLOXACIN 250 MG/D5% WATER 50 ML IV SCH (10:16)
[2017-01-28] MEDS: INSULIN ASPART 100 UNITS/ML SQ PRN (12:19)
[2017-01-28 15:21] VITALS: BP 133/54
[2017-01-30] MEDS ORDERED: EPOETIN ALFA 10,000 UNITS/ML VIAL SQ SCH (09:00)
[2017-02-01 06:58] LABS: GLUCOSE COMMENT 1 Received Meds; GLUCOSE,POINT OF CARE 177 MG/DL (70-110)
[2017-02-01 06:58] LABS: GLUCOSE,POINT OF CARE 99 MG/DL (70-110)
[2017-02-01 06:58] LABS: GLUCOSE,POINT OF CARE 97 MG/DL (70-110)
[2017-02-01 06:58] LABS: GLUCOSE COMMENT 1 Received Meds; GLUCOSE,POINT OF CARE 157 MG/DL (70-110)
[2017-02-01 06:59] LABS: GLUCOSE COMMENT 1 Received Meds; GLUCOSE,POINT OF CARE 194 MG/DL (70-110)
== END 2017-01-28 15:34 | DRG 871 ==
LOC: EMS 17:24 → 5S 22:09
PROVIDERS: ADMIT Internal Medicine; ATTEND Internal Medicine
PROC: 5A1D60Z (ICD-10-PCS; principal; 2017-01-26)
DX: A41.9 Sepsis, unspecified organism (principal); N18.6 End stage renal disease; G93.40 Encephalopathy, unspecified; E43 Unspecified severe protein-calorie malnutrition; I50.32 Chronic diastolic (congestive) heart failure; I13.2 Hypertensive heart and chronic kidney disease with heart failure and with stage 5 chronic kidney disease, or end stage renal disease; N39.0 Urinary tract infection, site not specified; I95.9 Hypotension, unspecified; E11.65 Type 2 diabetes mellitus with hyperglycemia; E11.22 Type 2 diabetes mellitus with diabetic chronic kidney disease; M13.0 Polyarthritis, unspecified; K21.9 Gastro-esophageal reflux disease without esophagitis; I25.10 Atherosclerotic heart disease of native coronary artery without angina pectoris; E83.39 Other disorders of phosphorus metabolism; E55.9 Vitamin D deficiency, unspecified; F03.90 Unspecified dementia, unspecified severity, without behavioral disturbance, psychotic disturbance, mood disturbance, and anxiety; H40.9 Unspecified glaucoma; E78.00 Pure hypercholesterolemia, unspecified; M40.209 Unspecified kyphosis, site unspecified; E86.0 Dehydration; D64.9 Anemia, unspecified; E87.5 Hyperkalemia; J44.9 Chronic obstructive pulmonary disease, unspecified; E78.5 Hyperlipidemia, unspecified; I49.5 Sick sinus syndrome; R62.7 Adult failure to thrive; R53.81 Other malaise; Z88.1 Allergy status to other antibiotic agents; Z88.5 Allergy status to narcotic agent; Z88.8 Allergy status to other drugs, medicaments and biological substances; Z88.0 Allergy status to penicillin; Z79.899 Other long term (current) drug therapy; Z79.51 Long term (current) use of inhaled steroids; Z79.4 Long term (current) use of insulin; Z79.82 Long term (current) use of aspirin; Z99.2 Dependence on renal dialysis; Z90.49 Acquired absence of other specified parts of digestive tract; Z95.1 Presence of aortocoronary bypass graft; Z95.0 Presence of cardiac pacemaker; Z68.23 Body mass index [BMI] 23.0-23.9, adult; Z91.19 Patient's noncompliance with other medical treatment and regimen
CPT/HCPCS: 51701; 70450; 82962; 83036; 83605; 83735; 84100; 87040; 87081; 87086; 93005; 94640; 96361; 96365; 99285; J0696; J1956; J7030; J7040; J7050

== ENCOUNTER 2017-01-28 18:36 | Inpatient (IN) | payer MEDICARE, OTHER ==
[~2017-01-28] VITALS: Ht 152.4 cm; Wt 43.5 kg
[~2017-01-28 18:36] MED LIST changes: +AMLO-511 PO; +DIPH25 PO; -DOCU240C25 PO; +DOCU250C91 PO; +FAMO20 PO; +FURO80 PO; -HYDR25 PO; +HYDR25TA84 PO; +ISOS60TA4 PO; +MONT10TA21 PO; +NITR.4 SL; +SIMV-260 PO; -SIMV20 PO; +TRAM50TA4 PO; +VITAD1000 PO
[2017-01-28] MEDS ORDERED: 0.9% SODIUM CHLORIDE 5 ML NEB SOLUTION NEB ONE (19:27)
[2017-01-28] MEDS ORDERED: PredniSONE 20 MG TABLET PO ONE (19:30)
[2017-01-28] MEDS ORDERED: LEVOFLOXACIN 500 MG/D5% WATER 100 ML IV ONE (19:30)
[2017-01-28] MEDS ORDERED: ALBUTEROL SULFATE 5 MG/ML 20 ML NEB SOLN [BULK] NEB ONE ×2 (19:30)
[2017-01-28] MEDS ORDERED: IPRATROPIUM BROMIDE 0.5 MG/2.5 ML NEB SOLUTION NEB ONE ×2 (19:30)
[2017-01-28 19:57] LABS: BASOPHILS % (AUTO) 0.1 % (0.0-2.0); EOSINOPHILS % (AUTO) 0.2 % (1.0-6.0); HEMATOCRIT 25.8 % (36-46); HEMOGLOBIN 8.2 g/dL (12.0-16.0); LYMPHOCYTES # (AUTO) 0.4 K/uL (1.0-4.8); LYMPHOCYTES % (AUTO) 1.5 % (22.0-44.0); MEAN CORPUSCULAR HEMOGLOBIN 31.3 pg (26.0-34.0); MEAN CORPUSCULAR HGB CONC 31.7 G/dL (31.0-37.0); MEAN CORPUSCULAR VOLUME 99 fL (80-100); MONOCYTES # (AUTO) 0.5 K/uL (0.1-1.0); MONOCYTES % (AUTO) 1.9 % (2.0-9.0); NEUTROPHILS # (AUTO) 25.8 K/uL (1.8-7.7); NEUTROPHILS % (AUTO) 96.3 % (40.0-70.0); PLATELET COUNT (AUTO) 247 K/uL (150-450); RED BLOOD CELL COUNT(AUTO) 2.61 MIL/uL (4.00-5.20); RED CELL DISTRIBUTION WIDTH 18.7 % (11.5-14.5); WHITE BLOOD COUNT (AUTO) 26.8 K/uL (4.5-11.0)
[2017-01-28 20:08] LABS: INR 1.1 (0.9-1.1); PROTHROMBIN TIME 11.3 SEC (9.4-11.6)
[2017-01-28 20:11] LABS: ANION GAP 10 mmol/L (8-16); CALCIUM, TOTAL 8.1 mg/dL (8.8-10.5); CARBON DIOXIDE 28 mmol/L (22-29); CHLORIDE 101 mmol/L (98-107); CREATININE 2.87 mg/dL (0.60-1.30); GLOMERULAR FILTR. RATE CALC 16 mL/min (>60); POTASSIUM 3.8 mmol/L (3.5-5.1); SODIUM SERUM 139 mmol/L (136-145); UREA NITROGEN, BLOOD 18 mg/dL (7-18)
[2017-01-28 20:19] LABS: B-TYPE NATRIURETIC PEPTIDE 1150 pg/mL (0-100)
[2017-01-28 20:22] LABS: ALANINE AMINOTRANSFERASE 11 U/L (12-78); ALBUMIN 2.4 g/dL (3.4-5.0); ASPARTATE AMINOTRANSFERASE 20 U/L (15-37); BILIRUBIN,TOTAL 0.3 mg/dL (0.1-1.0); CREATINE KINASE, TOTAL 19 U/L (26-192); TOTAL PROTEIN, SERUM 7.4 g/dL (6.4-8.2)
[2017-01-28 20:28] LABS: RBC MORPHOLOGY COMMENT ABNORMAL RBC MORPH
[2017-01-28 20:44] LABS: APPEARANCE,URINE TURBID (CLEAR); GLUCOSE, URINE (UA) 100 mg/dL (NEGATIVE); KETONES,URINE NEGATIVE (NEGATIVE); LEUKOCYTE ESTERASE ,URINE LARGE (NEGATIVE); OCCULT BLOOD,URINE MODERATE (NEGATIVE); PH,URINE 5.5 (5.0-8.0); PROTEIN,URINE SEE CONFIRM (NEGATIVE)
[2017-01-28 20:46] LABS: ADD UA MICROSCOPIC YES
[2017-01-28 20:58] LABS: SULFOSALICYLIC ACID,URINE 3+ (Negative); WBC,URINE 51-100 /HPF (0-5)
[2017-01-28] MEDS ORDERED: INSULIN REGULAR, HUMAN 100 UNITS/ML IVP ONE (22:00)
[2017-01-28 22:30] VITALS: BP 114/48
[2017-01-28] MEDS ORDERED: ZOLPIDEM TARTRATE 5 MG TABLET PO PRN (22:30)
[2017-01-28] MEDS ORDERED: ACETAMINOPHEN 325 MG TABLET PO PRN (22:30)
[2017-01-28] MEDS ORDERED: ALBUTEROL SULFATE 2.5 MG/0.5 ML NEB SOLUTION NEB PRN (22:30)
[2017-01-28] MEDS ORDERED: IPRATROPIUM BROMIDE 0.5 MG/2.5 ML NEB SOLUTION NEB PRN (22:30)
[2017-01-28] MEDS ORDERED: MAGNESIUM HYDROXIDE SUSPENSION 30 ML UDCUP PO PRN (22:30)
[2017-01-28] MEDS ORDERED: HYDROCODONE/ACETAMINOPHEN 5-325 MG TABLET PO PRN (22:30)
[2017-01-28] MEDS ORDERED: BISACODYL 10 MG RECTAL RECTAL SUPPOSITORY PR PRN (22:30)
[2017-01-28] MEDS ORDERED: ONDANSETRON HCL 4 MG/2 ML VIAL IVP PRN (22:30)
[2017-01-28] MEDS ORDERED: MORPHINE SULFATE 2 MG/ML SYRINGE IVP PRN (22:45)
[2017-01-28 23:11] LABS: EOSINOPHILS % (AUTO) 0.1 % (1.0-6.0); HEMATOCRIT 26.6 % (36-46); HEMOGLOBIN 8.3 g/dL (12.0-16.0); LYMPHOCYTES # (AUTO) 0.4 K/uL (1.0-4.8); LYMPHOCYTES % (AUTO) 1.7 % (22.0-44.0); MEAN CORPUSCULAR HGB CONC 31.2 G/dL (31.0-37.0); MEAN CORPUSCULAR VOLUME 99 fL (80-100); MONOCYTES # (AUTO) 0.7 K/uL (0.1-1.0); MONOCYTES % (AUTO) 3.1 % (2.0-9.0); NEUTROPHILS # (AUTO) 20.8 K/uL (1.8-7.7); PLATELET COUNT (AUTO) 241 K/uL (150-450); RED BLOOD CELL COUNT(AUTO) 2.69 MIL/uL (4.00-5.20); RED CELL DISTRIBUTION WIDTH 18.6 % (11.5-14.5); WHITE BLOOD COUNT (AUTO) 21.9 K/uL (4.5-11.0)
[2017-01-28 23:15] LABS: NEUTROPHILS % (AUTO) 95.1 % (40.0-70.0)
[2017-01-29] MEDS: HEPARIN SODIUM,PORCINE 5,000 UNITS/ML VIAL SQ SCH ×3 (00:34→18:09)
[2017-01-29 04:13] VITALS: BP 132/55
[2017-01-29] MEDS: INSULIN ASPART 100 UNITS/ML SQ PRN (05:11)
[2017-01-29 07:47] LABS: GLUCOSE COMMENT 1 Received Meds; GLUCOSE,POINT OF CARE 152 MG/DL (70-110)
[2017-01-29 08:32] VITALS: BP 130/54
[2017-01-29] MEDS: SEVELAMER CARBONATE 800 MG TABLET PO SCH ×2 (09:04→18:09)
[2017-01-29] MEDS: DOCUSATE SODIUM 100 MG CAPSULE PO SCH ×2 (09:05→20:49)
[2017-01-29] MEDS: PANTOPRAZOLE SODIUM 40 MG/VIAL IVP SCH (09:05)
[2017-01-29] MEDS: SitaGLIPtin PHOSPHATE 50 MG TABLET PO SCH (09:05)
[2017-01-29] MEDS ORDERED: EPOETIN ALFA 10,000 UNITS/ML VIAL SQ SCH (10:00)
[2017-01-29 11:46] VITALS: BP 119/50
[2017-01-29 11:52] LABS: GLUCOSE,POINT OF CARE 104 MG/DL (70-110)
[2017-01-29 16:20] LABS: BASOPHILS % (AUTO) 0.2 % (0.0-2.0); EOSINOPHILS % (AUTO) 0.9 % (1.0-6.0); HEMATOCRIT 25.9 % (36-46); HEMOGLOBIN 8.2 g/dL (12.0-16.0); LYMPHOCYTES # (AUTO) 0.8 K/uL (1.0-4.8); LYMPHOCYTES % (AUTO) 4.7 % (22.0-44.0); MEAN CORPUSCULAR HEMOGLOBIN 31.1 pg (26.0-34.0); MEAN CORPUSCULAR HGB CONC 31.6 G/dL (31.0-37.0); MEAN CORPUSCULAR VOLUME 98 fL (80-100); MONOCYTES # (AUTO) 0.4 K/uL (0.1-1.0); MONOCYTES % (AUTO) 2.7 % (2.0-9.0); NEUTROPHILS # (AUTO) 15.3 K/uL (1.8-7.7); PLATELET COUNT (AUTO) 283 K/uL (150-450); RED BLOOD CELL COUNT(AUTO) 2.63 MIL/uL (4.00-5.20); RED CELL DISTRIBUTION WIDTH 18.3 % (11.5-14.5); WHITE BLOOD COUNT (AUTO) 16.7 K/uL (4.5-11.0)
[2017-01-29 16:22] LABS: NEUTROPHILS % (AUTO) 91.5 % (40.0-70.0)
[2017-01-29 16:37] LABS: ALBUMIN 2.7 g/dL (3.4-5.0); BILIRUBIN,TOTAL 0.3 mg/dL (0.1-1.0); CALCIUM, TOTAL 8.1 mg/dL (8.8-10.5); CREATININE 1.15 mg/dL (0.60-1.30); POTASSIUM 3.8 mmol/L (3.5-5.1); TOTAL PROTEIN, SERUM 8.1 g/dL (6.4-8.2)
[2017-01-29 17:08] LABS: RBC MORPHOLOGY COMMENT ABNORMAL RBC MORPH
[2017-01-29 18:32] LABS: GLUCOSE,POINT OF CARE 118 MG/DL (70-110)
[2017-01-29 20:18] VITALS: BP 148/62
[2017-01-29] MEDS: SIMVASTATIN 20 MG TABLET PO SCH (20:49)
[2017-01-29 23:17] VITALS: BP 146/59
[2017-01-29 23:27] LABS: GLUCOSE,POINT OF CARE 103 MG/DL (70-110)
[2017-01-30] MEDS: HEPARIN SODIUM,PORCINE 5,000 UNITS/ML VIAL SQ SCH ×3 (01:46→15:28)
[2017-01-30 05:55] VITALS: BP 132/52
[2017-01-30 07:10] VITALS: BP 145/74
[2017-01-30] MEDS: DOCUSATE SODIUM 100 MG CAPSULE PO SCH ×2 (08:35→20:36)
[2017-01-30] MEDS: SitaGLIPtin PHOSPHATE 50 MG TABLET PO SCH (08:35)
[2017-01-30] MEDS: PANTOPRAZOLE SODIUM 40 MG/VIAL IVP SCH (08:36)
[2017-01-30] MEDS: SEVELAMER CARBONATE 800 MG TABLET PO SCH ×2 (08:36→17:26)
[2017-01-30 11:02] LABS: GLUCOSE,POINT OF CARE 124 MG/DL (70-110)
[2017-01-30 11:20] VITALS: BP 114/53
[2017-01-30 12:02] LABS: GLUCOSE,POINT OF CARE 135 MG/DL (70-110)
[2017-01-30 15:35] VITALS: BP 120/56
[2017-01-30 17:42] LABS: GLUCOSE COMMENT 1 Received Meds; GLUCOSE,POINT OF CARE 144 MG/DL (70-110)
[2017-01-30] MEDS: INSULIN ASPART 100 UNITS/ML SQ PRN (17:56)
[2017-01-30 20:24] VITALS: BP 119/48
[2017-01-30] MEDS: SIMVASTATIN 20 MG TABLET PO SCH (20:36)
[2017-01-30] MEDS: DEXTROSE 50%-WATER 25 GM/50 ML SYRINGE IVP PRN (20:37)
[2017-01-30 21:37] LABS: GLUCOSE COMMENT 1 Repeated; GLUCOSE COMMENT 3 Received Meds; GLUCOSE,POINT OF CARE 54 MG/DL (70-110)
[2017-01-30 21:37] LABS: GLUCOSE,POINT OF CARE 86 MG/DL (70-110)
[2017-01-30 21:37] LABS: GLUCOSE,POINT OF CARE 42 MG/DL (70-110)
[2017-01-30 23:25] VITALS: BP_SYST 118; BP_SYST 137; BP_DIAS 56; BP_DIAS 57
[2017-01-31 04:53] VITALS: BP 142/56
[2017-01-31 06:12] LABS: GLUCOSE,POINT OF CARE 113 MG/DL (70-110)
[2017-01-31 07:02] LABS: BASOPHILS # (AUTO) 0.04 K/uL (0.00-0.20); BASOPHILS % (AUTO) 0.2 % (0.0-2.0); EOSINOPHILS # (AUTO) 0.36 K/uL (0.00-0.70); EOSINOPHILS % (AUTO) 1.86 % (1.0-6.0); HEMATOCRIT 27.5 % (36-46); HEMOGLOBIN 8.8 g/dL (12.0-16.0); LYMPHOCYTES % (AUTO) 5.4 % (22.0-44.0); MEAN CORPUSCULAR HEMOGLOBIN 31.7 pg (26.0-34.0); MEAN CORPUSCULAR HGB CONC 32.1 G/dL (31.0-37.0); MEAN CORPUSCULAR VOLUME 99 fL (80-100); MONOCYTES # (AUTO) 0.9 K/uL (0.1-1.0); MONOCYTES % (AUTO) 4.5 % (2.0-9.0); NEUTROPHILS # (AUTO) 17.1 K/uL (1.8-7.7); PLATELET COUNT (AUTO) 301 K/uL (150-450); RED BLOOD CELL COUNT(AUTO) 2.78 MIL/uL (4.00-5.20); RED CELL DISTRIBUTION WIDTH 19.1 % (11.5-14.5); WHITE BLOOD COUNT (AUTO) 19.4 K/uL (4.5-11.0)
[2017-01-31 07:06] LABS: NEUTROPHILS % (AUTO) 88.1 % (40.0-70.0)
[2017-01-31 07:26] LABS: CREATININE 4.65 mg/dL (0.60-1.30); PHOSPHORUS 4.2 mg/dL (2.5-4.9); POTASSIUM 4.1 mmol/L (3.5-5.1)
[2017-01-31 07:48] VITALS: BP 144/60
[2017-01-31] MEDS: PANTOPRAZOLE SODIUM 40 MG/VIAL IVP SCH (07:49)
[2017-01-31] MEDS: SitaGLIPtin PHOSPHATE 50 MG TABLET PO SCH (07:49)
[2017-01-31] MEDS: HEPARIN SODIUM,PORCINE 5,000 UNITS/ML VIAL SQ SCH ×4 (07:49→23:30)
[2017-01-31] MEDS: SEVELAMER CARBONATE 800 MG TABLET PO SCH ×2 (07:49→18:00)
[2017-01-31] MEDS: DOCUSATE SODIUM 100 MG CAPSULE PO SCH ×2 (07:49→20:35)
[2017-01-31] MEDS ORDERED: DOXYCYCLINE 100 MG in DEXTROSE 5%-WATER 100 ML IV SCH (11:00)
[2017-01-31 11:31] LABS: GLUCOSE COMMENT 1 Received Meds; GLUCOSE,POINT OF CARE 259 MG/DL (70-110)
[2017-01-31] MEDS ORDERED: VANCOMYCIN HCL 1 GM/D5% WATER 200 ML IV PRN (11:45)
[2017-01-31 11:52] VITALS: BP 105/45
[2017-01-31] MEDS ORDERED: VANCOMYCIN HCL 1 GM/D5% WATER 200 ML IV ONE (12:00)
[2017-01-31 15:47] VITALS: BP 104/59
[2017-01-31 17:37] LABS: GLUCOSE COMMENT 1 Received Meds; GLUCOSE,POINT OF CARE 216 MG/DL (70-110)
[2017-01-31] MEDS: INSULIN ASPART 100 UNITS/ML SQ PRN ×2 (19:04→22:17)
[2017-01-31 19:46] VITALS: BP 108/52
[2017-01-31] MEDS: SIMVASTATIN 20 MG TABLET PO SCH (20:35)
[2017-01-31 22:54] VITALS: BP 106/60
[2017-01-31 23:51] LABS: GLUCOSE COMMENT 1 Received Meds; GLUCOSE,POINT OF CARE 201 MG/DL (70-110)
[2017-02-01] MEDS: DEXTROSE 50%-WATER 25 GM/50 ML SYRINGE IVP PRN (01:20)
[2017-02-01 02:42] LABS: GLUCOSE,POINT OF CARE 325 MG/DL (70-110)
[2017-02-01 04:25] VITALS: BP 128/45
[2017-02-01 06:07] LABS: CALCIUM, TOTAL 8.8 mg/dL (8.8-10.5); CREATININE 6.03 mg/dL (0.60-1.30); POTASSIUM 4.5 mmol/L (3.5-5.1)
[2017-02-01 06:19] LABS: EOSINOPHILS % (AUTO) 0.9 % (1.0-6.0); HEMATOCRIT 28.9 % (36-46); HEMOGLOBIN 8.9 g/dL (12.0-16.0); LYMPHOCYTES # (AUTO) 0.7 K/uL (1.0-4.8); MEAN CORPUSCULAR HEMOGLOBIN 31.2 pg (26.0-34.0); MEAN CORPUSCULAR HGB CONC 30.9 G/dL (31.0-37.0); MEAN CORPUSCULAR VOLUME 101 fL (80-100); MONOCYTES # (AUTO) 0.9 K/uL (0.1-1.0); MONOCYTES % (AUTO) 4.1 % (2.0-9.0); NEUTROPHILS # (AUTO) 20.3 K/uL (1.8-7.7); PLATELET COUNT (AUTO) 334 K/uL (150-450); RED BLOOD CELL COUNT(AUTO) 2.87 MIL/uL (4.00-5.20); RED CELL DISTRIBUTION WIDTH 18.8 % (11.5-14.5); WHITE BLOOD COUNT (AUTO) 22.1 K/uL (4.5-11.0)
[2017-02-01 06:59] LABS: GLUCOSE,POINT OF CARE 149 MG/DL (70-110)
[2017-02-01 07:26] LABS: PROCALCITONIN (PCT) 2.8 ng/mL (<0.50)
[2017-02-01 08:48] LABS: RBC MORPHOLOGY COMMENT ABNORMAL RBC MORPH
[2017-02-01] MEDS: HEPARIN SODIUM,PORCINE 5,000 UNITS/ML VIAL SQ SCH ×3 (10:23→23:46)
[2017-02-01] MEDS: EPOETIN ALFA 10,000 UNITS/ML VIAL SQ SCH (10:23)
[2017-02-01] MEDS: SEVELAMER CARBONATE 800 MG TABLET PO SCH ×2 (10:24→18:00)
[2017-02-01] MEDS: SitaGLIPtin PHOSPHATE 50 MG TABLET PO SCH (10:24)
[2017-02-01] MEDS: DOCUSATE SODIUM 100 MG CAPSULE PO SCH ×2 (10:24→21:18)
[2017-02-01] MEDS: PANTOPRAZOLE SODIUM 40 MG/VIAL IVP SCH (10:24)
[2017-02-01 10:47] VITALS: BP 102/58
[2017-02-01 11:32] VITALS: BP 122/42
[2017-02-01 11:32] LABS: GLUCOSE,POINT OF CARE 137 MG/DL (70-110)
[2017-02-01] MEDS: VITAMIN B COMP/VIT C/FOLIC ACID CAPSULE PO SCH (15:55)
[2017-02-01 15:59] VITALS: BP 105/49
[2017-02-01 17:28] LABS: GLUCOSE COMMENT 1 Received Meds; GLUCOSE,POINT OF CARE 160 MG/DL (70-110)
[2017-02-01 20:26] VITALS: BP 103/49
[2017-02-01] MEDS: SIMVASTATIN 20 MG TABLET PO SCH (21:18)
[2017-02-01] MEDS: DOXYCYCLINE 100 MG CAPSULE PO SCH (23:45)
[2017-02-02 00:03] VITALS: BP_SYST 113; BP_SYST 97; BP_DIAS 47; BP_DIAS 52
[2017-02-02 00:12] LABS: GLUCOSE COMMENT 1 Received Meds; GLUCOSE,POINT OF CARE 222 MG/DL (70-110)
[2017-02-02] MEDS: DOXYCYCLINE 100 MG CAPSULE PO SCH (00:15)
[2017-02-02 04:07] VITALS: BP 105/49
[2017-02-02 06:24] LABS: EOSINOPHILS % (AUTO) 0.2 % (1.0-6.0); HEMATOCRIT 27.2 % (36-46); HEMOGLOBIN 8.3 g/dL (12.0-16.0); LYMPHOCYTES # (AUTO) 0.5 K/uL (1.0-4.8); LYMPHOCYTES % (AUTO) 2.4 % (22.0-44.0); MEAN CORPUSCULAR HEMOGLOBIN 31.1 pg (26.0-34.0); MEAN CORPUSCULAR HGB CONC 30.6 G/dL (31.0-37.0); MEAN CORPUSCULAR VOLUME 102 fL (80-100); MONOCYTES # (AUTO) 1.2 K/uL (0.1-1.0); MONOCYTES % (AUTO) 6.1 % (2.0-9.0); NEUTROPHILS # (AUTO) 18.3 K/uL (1.8-7.7); PLATELET COUNT (AUTO) 325 K/uL (150-450); RED BLOOD CELL COUNT(AUTO) 2.68 MIL/uL (4.00-5.20); RED CELL DISTRIBUTION WIDTH 19.6 % (11.5-14.5); WHITE BLOOD COUNT (AUTO) 20.1 K/uL (4.5-11.0)
[2017-02-02] MEDS: INSULIN ASPART 100 UNITS/ML SQ PRN (06:35)
[2017-02-02 06:45] LABS: NEUTROPHILS % (AUTO) 91.3 % (40.0-70.0)
[2017-02-02 07:00] LABS: CALCIUM, TOTAL 8.3 mg/dL (8.8-10.5); CREATININE 3.87 mg/dL (0.60-1.30); MAGNESIUM 1.8 mg/dL (1.80-2.40); PHOSPHORUS 5.6 mg/dL (2.5-4.9)
[2017-02-02 07:02] LABS: GLUCOSE COMMENT 1 Received Meds; GLUCOSE,POINT OF CARE 217 MG/DL (70-110)
[2017-02-02 07:45] LABS: RBC MORPHOLOGY COMMENT ABNORMAL RBC MORPH
[2017-02-02 07:55] VITALS: BP 118/51
[2017-02-02] MEDS: SEVELAMER CARBONATE 800 MG TABLET PO SCH ×3 (08:00→17:25)
[2017-02-02] MEDS: DOCUSATE SODIUM 100 MG CAPSULE PO SCH ×3 (09:00→20:45)
[2017-02-02] MEDS: HEPARIN SODIUM,PORCINE 5,000 UNITS/ML VIAL SQ SCH ×2 (09:01→18:07)
[2017-02-02] MEDS: SitaGLIPtin PHOSPHATE 50 MG TABLET PO SCH (09:01)
[2017-02-02] MEDS: VITAMIN B COMP/VIT C/FOLIC ACID CAPSULE PO SCH (09:02)
[2017-02-02] MEDS: PANTOPRAZOLE SODIUM 40 MG/VIAL IVP SCH (09:02)
[2017-02-02] MEDS ORDERED: VANCOMYCIN HCL 1 GM/D5% WATER 200 ML IV ONE (11:00)
[2017-02-02 11:32] VITALS: BP 105/51
[2017-02-02 14:22] LABS: GLUCOSE,POINT OF CARE 173 MG/DL (70-110)
[2017-02-02 16:39] VITALS: BP 107/49
[2017-02-02] MEDS: DOXYCYCLINE 100 MG in DEXTROSE 5%-WATER 100 ML IV SCH (18:07)
[2017-02-02 20:07] VITALS: BP 104/48
[2017-02-02] MEDS: SIMVASTATIN 20 MG TABLET PO SCH (20:46)
[2017-02-02] MEDS ORDERED: SODIUM CHLORIDE 0.9% 250 ML IV ONE (20:49)
[2017-02-02] MEDS: AZTREONAM 0.5 GM in DEXTROSE 5%-WATER 50 ML IV SCH (20:50)
[2017-02-03] VITALS (7 sets, daily range): BP systolic 101–127; BP diastolic 45–64
[2017-02-03] MEDS: HEPARIN SODIUM,PORCINE 5,000 UNITS/ML VIAL SQ SCH ×3 (00:09→21:00)
[2017-02-03] MEDS: AZTREONAM 0.5 GM in DEXTROSE 5%-WATER 50 ML IV SCH (04:38)
[2017-02-03] MEDS: DOXYCYCLINE 100 MG in DEXTROSE 5%-WATER 100 ML IV SCH (05:36)
[2017-02-03 07:01] LABS: ALBUMIN 2.8 g/dL (3.4-5.0); BILIRUBIN,TOTAL 0.3 mg/dL (0.1-1.0); CALCIUM, TOTAL 8.4 mg/dL (8.8-10.5); CREATININE 5.32 mg/dL (0.60-1.30); MAGNESIUM 1.8 mg/dL (1.80-2.40); PHOSPHORUS 6.7 mg/dL (2.5-4.9); POTASSIUM 5.4 mmol/L (3.5-5.1)
[2017-02-03 07:12] LABS: GLUCOSE,POINT OF CARE 171 MG/DL (70-110)
[2017-02-03] MEDS ORDERED: SODIUM POLYSTYRENE SULFONATE 15 GM/60 ML SUSPENSION BOTTLE PO ONE (07:45)
[2017-02-03] MEDS: SEVELAMER CARBONATE 800 MG TABLET PO SCH (08:00)
[2017-02-03] MEDS: PANTOPRAZOLE SODIUM 40 MG/VIAL IVP SCH (08:37)
[2017-02-03] MEDS: DOCUSATE SODIUM 100 MG CAPSULE PO SCH ×2 (08:37→21:00)
[2017-02-03] MEDS: VITAMIN B COMP/VIT C/FOLIC ACID CAPSULE PO SCH (08:37)
[2017-02-03] MEDS: EPOETIN ALFA 10,000 UNITS/ML VIAL SQ SCH (08:37)
[2017-02-04 04:46] VITALS: BP 129/59
[2017-02-04 06:53] LABS: CALCIUM, TOTAL 8.4 mg/dL (8.8-10.5); CREATININE 6.77 mg/dL (0.60-1.30); POTASSIUM 5.5 mmol/L (3.5-5.1)
[2017-02-04 07:51] VITALS: BP 122/89
[2017-02-04] MEDS ORDERED: SODIUM POLYSTYRENE SULFONATE 15 GM/60 ML SUSPENSION BOTTLE PO ONE (08:00)
[2017-02-04] MEDS: DOCUSATE SODIUM 100 MG CAPSULE PO SCH ×2 (09:00→22:15)
[2017-02-04] MEDS: HEPARIN SODIUM,PORCINE 5,000 UNITS/ML VIAL SQ SCH ×2 (09:00→22:15)
[2017-02-04] MEDS ORDERED: ACETAMINOPHEN 650 MG RECTAL SUPPOSITORY PR PRN (10:45)
[2017-02-04 11:39] VITALS: BP 125/60
[2017-02-04] MEDS ORDERED: LORazepam 0.5 MG TABLET PO PRN (12:15)
[2017-02-04] MEDS ORDERED: HYOSCYAMINE SULFATE 0.125 MG TAB SL PRN (12:15)
[2017-02-04 15:16] VITALS: BP 128/89
[2017-02-04 20:05] VITALS: BP 139/59
[2017-02-04 23:31] VITALS: BP 144/59
[2017-02-05 05:28] VITALS: BP 132/57
[2017-02-05 07:26] VITALS: BP 112/50
[2017-02-05] MEDS: DOCUSATE SODIUM 100 MG CAPSULE PO SCH ×2 (09:00→20:13)
[2017-02-05] MEDS: HEPARIN SODIUM,PORCINE 5,000 UNITS/ML VIAL SQ SCH ×2 (09:00→20:14)
[2017-02-05 11:26] VITALS: BP 143/74
[2017-02-05] MEDS: MORPHINE SULFATE 10 MG/5 ML SOLUTION UDCUP PO PRN (11:31)
[2017-02-05 19:43] VITALS: BP 133/72
[2017-02-05 23:21] VITALS: BP 112/55
[2017-02-06 04:41] VITALS: BP 140/54
[2017-02-06 07:22] VITALS: BP 132/53
[2017-02-06] MEDS: HEPARIN SODIUM,PORCINE 5,000 UNITS/ML VIAL SQ SCH ×2 (10:33→20:28)
[2017-02-06] MEDS: DOCUSATE SODIUM 100 MG CAPSULE PO SCH ×2 (10:33→20:20)
[2017-02-06 15:35] VITALS: BP 100/50
[2017-02-06 19:19] VITALS: BP 129/55
[2017-02-06 23:21] VITALS: BP 120/46
[2017-02-07 04:21] VITALS: BP 127/51
[2017-02-07 07:28] VITALS: BP 103/51
[2017-02-07] MEDS: DOCUSATE SODIUM 100 MG CAPSULE PO SCH ×2 (07:38→19:49)
[2017-02-07] MEDS: HEPARIN SODIUM,PORCINE 5,000 UNITS/ML VIAL SQ SCH ×2 (07:39→19:49)
[2017-02-07 11:55] VITALS: BP 132/58
[2017-02-07 15:06] VITALS: BP 148/52
[2017-02-07 20:09] VITALS: BP 146/56
[2017-02-08] VITALS (7 sets, daily range): BP systolic 102–147; BP diastolic 41–64
[2017-02-08] MEDS: DOCUSATE SODIUM 100 MG CAPSULE PO SCH ×2 (09:00→20:14)
[2017-02-08] MEDS: HEPARIN SODIUM,PORCINE 5,000 UNITS/ML VIAL SQ SCH ×2 (09:00→20:14)
[2017-02-09 05:03] VITALS: BP 160/55
[2017-02-09 07:23] VITALS: BP 120/76
[2017-02-09] MEDS: DOCUSATE SODIUM 100 MG CAPSULE PO SCH ×2 (09:00→20:05)
[2017-02-09] MEDS: HEPARIN SODIUM,PORCINE 5,000 UNITS/ML VIAL SQ SCH ×2 (09:00→20:05)
[2017-02-09 11:13] VITALS: BP 126/42
[2017-02-09] MEDS: MORPHINE SULFATE 10 MG/5 ML SOLUTION UDCUP PO PRN (13:28)
[2017-02-09 15:41] VITALS: BP 142/48
[2017-02-09 19:20] VITALS: BP 152/69
[2017-02-09 23:10] VITALS: BP 153/72
[2017-02-10 04:24] VITALS: BP 140/85
[2017-02-10 08:01] VITALS: BP 150/67
[2017-02-10] MEDS: HEPARIN SODIUM,PORCINE 5,000 UNITS/ML VIAL SQ SCH (09:00)
[2017-02-10] MEDS: DOCUSATE SODIUM 100 MG CAPSULE PO SCH (09:00)
[2017-02-10 11:37] VITALS: BP 146/57
== END 2017-02-10 15:00 | DRG 871 ==
LOC: EMS 18:38 → 6N 21:30
PROVIDERS: ADMIT Hospitalist; ATTEND Hospitalist
PROC: 5A1D60Z (ICD-10-PCS; principal; 2017-01-29)
DX: A41.9 Sepsis, unspecified organism (principal); E43 Unspecified severe protein-calorie malnutrition; N18.6 End stage renal disease; J96.01 Acute respiratory failure with hypoxia; J16.8 Pneumonia due to other specified infectious organisms; I13.2 Hypertensive heart and chronic kidney disease with heart failure and with stage 5 chronic kidney disease, or end stage renal disease; N39.0 Urinary tract infection, site not specified; J47.0 Bronchiectasis with acute lower respiratory infection; J81.1 Chronic pulmonary edema; Z68.1 Body mass index [BMI] 19.9 or less, adult; H40.9 Unspecified glaucoma; R62.7 Adult failure to thrive; Z66 Do not resuscitate; I50.9 Heart failure, unspecified; E78.5 Hyperlipidemia, unspecified; J84.10 Pulmonary fibrosis, unspecified; I49.5 Sick sinus syndrome; Z51.5 Encounter for palliative care; F03.90 Unspecified dementia, unspecified severity, without behavioral disturbance, psychotic disturbance, mood disturbance, and anxiety; I45.81 Long QT syndrome; Z53.29 Procedure and treatment not carried out because of patient's decision for other reasons; B96.89 Other specified bacterial agents as the cause of diseases classified elsewhere; E11.22 Type 2 diabetes mellitus with diabetic chronic kidney disease; J44.9 Chronic obstructive pulmonary disease, unspecified; B95.2 Enterococcus as the cause of diseases classified elsewhere; D63.1 Anemia in chronic kidney disease; Z79.4 Long term (current) use of insulin; Z99.81 Dependence on supplemental oxygen; Z99.2 Dependence on renal dialysis; Z95.0 Presence of cardiac pacemaker; Z90.49 Acquired absence of other specified parts of digestive tract; Z88.0 Allergy status to penicillin; Z95.1 Presence of aortocoronary bypass graft; Z79.82 Long term (current) use of aspirin; Z88.8 Allergy status to other drugs, medicaments and biological substances; Z88.1 Allergy status to other antibiotic agents
CPT/HCPCS: 51702; 82962; 83605; 83735; 84100; 84145; 87040; 87070; 87081; 87086; 87106; 87205; 90935; 93005; 94640; 96365; 96375; 99291; C9113; J0885; J1644; J1815; J1956; J3370; J3490; J7050; J7060